=== PATIENT | male | born 1975 | race Caucasian/White ===

== ENCOUNTER 2021-05-23 12:22 | Emergency (ER) | payer OTHER ==
[2021-05-23 12:45] VITALS: BP 168/104
[2021-05-23] MEDS ORDERED: DEXAMETHASONE 10 MG/ML VIAL PO STA (13:10)
[2021-05-23] MEDS ORDERED: CHERRY SYRUP 10 ML UDC PO ONE (13:10)
--- NOTE | 2021-05-23 13:15 | ED Physician Documentation ---
PD HPI BACK PAIN - Stated complaint Stated Complaint: BACK PX - Chief complaint Chief Complaint: Back Pain - History obtained from History obtained from: Patient - History of Present Illness Timing - onset: How many days ago Timing - duration: Days (3) Timing - details: Abrupt onset, Still present Location: Lower, Right Quality: Pain, Sharp Associated symptoms: No: Fever, Weakness, Numbness, Incontinent of urine, Unable to urinate, Hematuria, Incontinent of stool Improves with: Rest Worsened by: Movement, Twisting Contributing factors: Other (digging a ditch.) Similar symptoms before: Diagnosis (lumbar strain) Recently seen: Clinic - Additional information Additional information: 45-year-old male reports onset of severe back pain about 3 days ago. He correlates this with digging a ditch and states that at the time he had a sore back but this pain did not get this bad until today. He has had an injury to this area previously and he relates digging a ditch continuously for about 30 to 40 minutes. He has a very sharp pain and the pains seem to come on sometimes without provocation. He went in to see Dr. Potter at the walk-in clinic was given a shot of Toradol he did not think this helped all that much. Review of Systems Constitutional: denies: Fever Nose: denies: Congestion Respiratory: denies: Cough GI: denies: Vomiting Musculoskeletal: reports: Back pain. denies: Extremity pain, Extremity swelling Neurologic: denies: Generalized weakness, Focal weakness, Numbness PD PAST MEDICAL HISTORY - Past Medical History Past Medical History: Yes - Past Surgical History Past Surgical History: No - Present Medications Home Medications: Ambulatory Orders Medication Instructions Recorded Confirmed Cyclobenzaprine [Flexeril] 10 mg PO TID PRN #20 tablet 05/23/21 HYDROcod/ACETAM 5/325 [Thorpe 5/325] 1 - 2 tablet PO Q6H PRN #14 tablet 05/23/21 - Allergies Allergies/Adverse Reactions: Allergies Allergy/AdvReac Type Severity Reaction Status Date / Time No Known Drug Allergies Allergy Verified 05/23/21 12:45 - Social History Does the pt smoke?: No Smoking Status: Never smoker Does the pt drink ETOH?: No Does the pt have substance abuse?: Yes - Immunizations Immunizations are current?: Yes - POLST Patient has POLST: No PD ED PE NORMAL - Vitals Vital signs reviewed: Yes (Hypertensive) - General General: Alert and oriented X 3, No acute distress, Well developed/nourished - HEENT HEENT: Atraumatic, PERRL, EOMI - Respiratory Respiratory: No respiratory distress - Back Back: Other (There is minimal tenderness to the insertion of the latissimus dorsi to the posterior iliac crest. 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 I have indicated the patient to expect about 5 days for this type of injury and have resolution rather than persistent problems. I have asked patient to hydrate excessively and we will provide some pain medication muscle relaxant. Today he is given dexamethasone 10 mg orally and we will forego the administration of Toradol as this did not seem to help 3 days ago. Departure - Departure Disposition: 01 Home, Self Care Clinical Impression: Overuse injury Condition: Stable Instructions: ED Low Back Pain Injury Follow-Up: your, doctor [Other] Prescriptions: Cyclobenzaprine [Flexeril] 10 mg PO TID PRN #20 tablet PRN Reason: Spasms HYDROcod/ACETAM 5/325 [Thorpe 5/325] 1 - 2 tablet PO Q6H PRN #14 tablet PRN Reason: Pain Discharge Date/Time: 05/23/21 13:28
== END 2021-05-23 13:28 | disposition home or self-care (01) ==
LOC: ED 12:22
DX: M70.90 Unspecified soft tissue disorder related to use, overuse and pressure of unspecified site (principal); Y93.H1 Activity, digging, shoveling and raking
CPT/HCPCS: 99282; 99284; A9270

== ENCOUNTER 2021-07-19 21:45 | Emergency (ER) | payer OTHER ==
[2021-07-19 22:34] LABS: BASOPHILS # (AUTO) 0.1 10^3/uL (0.0-0.1); BASOPHILS % (AUTO) 0.6 %; EOSINOPHILS # (AUTO) 0.1 10^3/uL (0.0-0.7); EOSINOPHILS % (AUTO) 0.6 %; HCT - HEMATOCRIT 44.5 % (42.0-52.0); HGB - HEMOGLOBIN 15.1 g/dL (14.0-18.0); LYMPHOCYTES # (AUTO) 1.8 10^3/uL (1.5-3.5); LYMPHOCYTES % (AUTO) 23.1 %; MEAN CORPUSCULAR HEMOGLOBIN 31.7 pg (27.0-31.0); MEAN CORPUSCULAR HGB CONC 33.9 g/dL (32.0-36.0); MEAN CORPUSCULAR VOLUME 93.5 fL (80.0-94.0); MEAN PLATELET VOLUME 9.3 fL (7.4-11.4); MONOCYTES # (AUTO) 0.8 10^3/uL (0.0-1.0); MONOCYTES % (AUTO) 9.6 %; NEUTROPHILS # (AUTO) 5.2 10^3/uL (1.5-6.6); NEUTROPHILS % (AUTO) 65.7 %; PLT - PLATELET COUNT 286 10^3/uL (130-450); RED BLOOD COUNT 4.76 10^6/uL (4.70-6.10); RED CELL DISTRIBUTION WIDTH 13.3 % (12.0-15.0); WHITE BLOOD COUNT 7.9 x10^3/uL (4.8-10.8)
[2021-07-19 22:45] LABS: BILIRUBIN,URINE NEGATIVE (NEGATIVE); GLUCOSE, URINE (UA) NEGATIVE (NEGATIVE); KETONES,URINE (UA) NEGATIVE (NEGATIVE); LEUKOCYTE ESTERASE, URINE NEGATIVE (NEGATIVE); MUDS CUTOFF CONCENTRATIONS CUTOFF CONC BELOW:; NITRITE,URINE NEGATIVE (NEGATIVE); OCCULT BLOOD,URINE TRACE-LYSE (NEGATIVE); PROTEIN,URINE NEGATIVE (NEGATIVE); UROBILINOGEN,URINE 0.2 (NORMAL) E.U./dL (NORMAL)
[2021-07-19 22:47] LABS: CLARITY,URINE CLEAR (CLEAR)
[2021-07-19] MEDS ORDERED: MIDAZOLAM 10 MG/5 ML UDC PO STA (22:50)
[2021-07-19 22:51] LABS: ACETAMINOPHEN < 10 ug/mL (10-30); ALBUMIN 4.5 g/dL (3.2-5.5); ALBUMIN/GLOBULIN RATIO 1.3 (1.0-2.2); ALKALINE PHOSPHATASE 39 IU/L (42-121); ALT ALANINE AMINOTRANSFERASE 22 IU/L (10-60); AST ASPARTATE AMINOTRANSFERASE 28 IU/L (10-42); BILIRUBIN,TOTAL 0.6 mg/dL (0.2-1.0); BUN - BLOOD UREA NITROGEN 11 mg/dL (6-20); CARBON DIOXIDE - CO2 24 mmol/L (21-32); CHLORIDE 103 mmol/L (101-111); CREATININE 0.7 mg/dL (0.6-1.2); ETOH - ETHANOL 277.1 mg/dL; GFR - MDRD 120 (>89); LIPASE 59 U/L (22-51); POTASSIUM 3.9 mmol/L (3.5-5.0); SALICYLATE < 6.0 mg/dL; SODIUM 140 mmol/L (135-145)
--- NOTE | 2021-07-19 22:53 | ED Physician Documentation ---
History of Present Illness - Stated complaint Stated Complaint: SI - Chief complaint Chief Complaint: MHE - History obtained from History obtained from: Patient - Additonal information Additional information: 46-year-old man With past medical history of alcohol abuse, depression, anxiety, bipolar disorder, brought in by EMS after Speaking on the phone with his father this evening who he states called his ex- a slur, upsetting the patient. The conversation exacerbated his baseline suicidal ideation and he developed a plan to shoot himself in the mouth but then called EMS instead. Guns were confiscated by police per patient's report. Of note, patient had been drinking beer all day. Denies HI or AVH Review of Systems Ten Systems: 10 systems reviewed and negative Constitutional: denies: Fever, Chills Cardiac: denies: Chest pain / pressure Psychiatric: reports: Depressed, Suicidal. denies: Homicidal PD PAST MEDICAL HISTORY - Past Medical History Past Medical History: Yes Psych: Depression, Anxiety, Bipolar disorder Derm: Eczema - Past Surgical History Past Surgical History: No - Present Medications Home Medications: Ambulatory Orders Medication Instructions Recorded Confirmed Ciclopirox 07/19/21 - Allergies Allergies/Adverse Reactions: Allergies Allergy/AdvReac Type Severity Reaction Status Date / Time No Known Drug Allergies Allergy Verified 07/19/21 22:03 - Social History Does the pt smoke?: No Smoking Status: Never smoker Does the pt drink ETOH?: No Does the pt have substance abuse?: Yes - Immunizations Immunizations are current?: Yes - POLST Patient has POLST: No PD ED PE NORMAL - Vitals Vital signs reviewed: Yes - General General: Alert and oriented X 3, No acute distress, Well developed/nourished - HEENT HEENT: Atraumatic, PERRL, EOMI - Neck Neck: Supple, no meningeal sign - Cardiac Cardiac: RRR - Respiratory Respiratory: No respiratory distress, Clear bilaterally - Abdomen Abdomen: Non tender, Non distended - Derm Derm: Normal color - Neuro Neuro: Alert and oriented X 3 - Psych Psych: Other (Tearful affect. Depressed mood) Results - Vitals Vitals: Oxygen O2 Source Room air - Labs Labs: Laboratory Tests 07/19/21 07/19/21 07/19/21 22:13 22:13 22:13 WBC 7.9 RBC 4.76 Hgb 15.1 Hct 44.5 MCV 93.5 MCH 31.7 H MCHC 33.9 RDW 13.3 Plt Count 286 MPV 9.3 Neut # (Auto) 5.2 Lymph # (Auto) 1.8 [place] # (Auto) 0.8 Eos # (Auto) 0.1 Baso # (Auto) 0.1 Absolute Nucleated RBC 0.00 Nucleated RBC % 0.0 Sodium 140 Potassium 3.9 Chloride 103 Carbon Dioxide 24 Anion Gap 13.0 BUN 11 Creatinine 0.7 Estimated GFR (MDRD) 120 Glucose 94 Calcium 9.0 Total Bilirubin 0.6 AST 28 ALT 22 Alkaline Phosphatase 39 L Total Protein 8.0 Albumin 4.5 Globulin 3.5 Albumin/Globulin Ratio 1.3 Lipase 59 H TSH 1.19 Urine Color Urine Clarity Urine pH Ur Specific [place] Urine Protein Urine Glucose (UA) Urine Ketones Urine Occult Blood Urine Nitrite Urine Bilirubin Urine Urobilinogen Ur Leukocyte Esterase Ur Microscopic Review Urine Culture Comments Salicylates < 6.0 Urine Opiates Screen Ur Oxycodone Screen Urine Methadone Screen Ur Propoxyphene Screen Acetaminophen < 10 L Ur Barbiturates Screen Ur Tricyclics Screen Ur Phencyclidine Scrn Ur Amphetamine Screen U Methamphetamines Scrn U Benzodiazepines Scrn Urine Cocaine Screen U Cannabinoids Screen Ethyl Alcohol 277.1 07/19/21 07/20/21 22:22 05:46 WBC RBC Hgb Hct MCV MCH MCHC RDW Plt Count MPV Neut # (Auto) Lymph # (Auto) [place] # (Auto) Eos # (Auto) Baso # (Auto) Absolute Nucleated RBC Nucleated RBC % Sodium Potassium Chloride Carbon Dioxide Anion Gap BUN Creatinine Estimated GFR (MDRD) Glucose Calcium Total Bilirubin AST ALT Alkaline Phosphatase Total Protein Albumin Globulin Albumin/Globulin Ratio Lipase TSH Urine Color YELLOW Urine Clarity CLEAR Urine pH 6.0 Ur Specific [place] 1.015 Urine Protein NEGATIVE Urine Glucose (UA) NEGATIVE Urine Ketones NEGATIVE Urine Occult Blood TRACE-LYSE Urine Nitrite NEGATIVE Urine Bilirubin NEGATIVE Urine Urobilinogen 0.2 (NORMAL) Ur Leukocyte Esterase NEGATIVE Ur Microscopic Review NOT INDICATED Urine Culture Comments NOT INDICATED Salicylates Urine Opiates Screen NEGATIVE Ur Oxycodone Screen NEGATIVE Urine Methadone Screen NEGATIVE Ur Propoxyphene Screen NEGATIVE Acetaminophen Ur Barbiturates Screen NEGATIVE Ur Tricyclics Screen NEGATIVE Ur Phencyclidine Scrn NEGATIVE Ur Amphetamine Screen NEGATIVE U Methamphetamines Scrn NEGATIVE U Benzodiazepines Scrn NEGATIVE Urine Cocaine Screen NEGATIVE U Cannabinoids Screen NEGATIVE Ethyl Alcohol 66.1 PD MEDICAL DECISION MAKING - ED course ED course: 10:30 PMpatient stating that he wants to leave because he has pets to feed but also stating that he is actively suicidal and is still thinking about shooting himself in the mouth with a gun. I advised the patient that he really needs to stay tonight and we can keep him comfortable until he can be evaluated by telepsych/social work. Patient requesting meds to help him sleep/help with anxiety. Patient endorsed to daytime MD for further management and care. Departure - Departure Disposition: 01 Home, Self Care Clinical Impression: Alcohol intoxication, Suicidal ideation Condition: Stable Comments: Home and rest and stay well-hydrated. Follow-up with counseling or alcohol treatment as discussed with the social work and her resources given to you by her. Discharge Date/Time: 07/20/21 11:00
[2021-07-19 22:55] LABS: AMPHETAMINE SCREEN,URINE NEGATIVE (NEGATIVE); BARBITURATE SCREEN,UR NEGATIVE (NEGATIVE); BENZODIAZEPINES SCREEN, URINE NEGATIVE (NEGATIVE); COCAINE SCREEN URINE NEGATIVE (NEGATIVE); METHADONE SCREEN, URINE NEGATIVE (NEGATIVE); METHAMPHETAMINES SCREEN, URINE NEGATIVE (NEGATIVE); OPIATE SCREEN, URINE NEGATIVE (NEGATIVE); OXYCODONE SCREEN, URINE NEGATIVE (NEGATIVE); PROPOXYPHENE SCREEN, URINE NEGATIVE (NEGATIVE); THC CANNABINOID SCREEN, URINE NEGATIVE (NEGATIVE); TRICYCLIC ANTIDEPRESSANT,URINE NEGATIVE (NEGATIVE)
[2021-07-19 23:11] LABS: GLUCOSE 94 mg/dL (70-100)
[2021-07-20] MEDS ORDERED: OLANZapine ODT 5 MG TABLET TL STA (00:24)
[2021-07-20 11:02] VITALS: BP 137/71
--- NOTE | 2021-07-20 11:28 | ED Physician Documentation ---
ED Addendum - Addendum Addendum: Social work talked with the patient and he was not feeling suicidal at this time. Has had some situational stresses. They discussed some of that and the social work provided resources for counseling or alcohol treatment if needed or desired by the patient. He is comfortable going home. I asked what his plans were for the day and he said he was going to go home rest feed the dogs and just relax. This seemed reasonable and goal oriented in he does not seem stressed and denies suicidality at this time. 07/20/21 11:27
== END 2021-07-20 11:00 | disposition home or self-care (01) ==
LOC: EDUNIT# → ED 21:45
DX: F10.129 Alcohol abuse with intoxication, unspecified (principal); R45.851 Suicidal ideations
CPT/HCPCS: 36415; 80053; 80306; 80307; 80320; 80329; 81003; 83690; 84443; 85025; 99283; A9270; 81001; 87086

== ENCOUNTER 2022-09-28 13:28 | Emergency (ER) | payer MEDICAID, OTHER ==
[2022-09-28] MEDS ORDERED: KETAMINE 500 MG/10 ML VIAL IM STA ×4 (13:58→22:21)
--- NOTE | 2022-09-28 13:58 | ED Physician Documentation ---
History of Present Illness - Stated complaint Stated Complaint: SI/HBD - Chief complaint Chief Complaint: MHE - Additonal information Additional information: 47-year-old old male was brought to the emergency department under an LORRIE for danger to self. Reportedly [facility] officer had been notified of a suicide threat at the patient's residence. Patient's called to advise that her had been drinking and was suicidal. She had not heard from him the previous night. Law enforcement gained entry into the house and found the patient to sleep on the floor.It is unclear if there was a gun at the scene. However law enforcement encountered a very intoxicated male who they had a difficult time talking to and who became aggressive and violent. He was ultimately handcuffed and brought into the emergency department. On arrival into the emergency department bay he is verbally aggressive, he cannot be redirected, he is also constantly screaming and yelling. He is insulting multiple staff members. He is demanding to be released from restraints and attempting to kick the nursing staff Review of Systems Unable to obtain: Intoxicated, Other (Per LORRIE) PD PAST MEDICAL HISTORY - Past Medical History Psych: Depression, Anxiety, Bipolar disorder Derm: Eczema - Past Surgical History Past Surgical History: No - Present Medications Home Medications: Ambulatory Orders Medication Instructions Recorded Confirmed Ciclopirox 07/19/21 - Allergies Allergies/Adverse Reactions: Allergies Allergy/AdvReac Type Severity Reaction Status Date / Time No Known Drug Allergies Allergy Verified 07/19/21 22:03 - Social History Does the pt smoke?: No Smoking Status: Never smoker Does the pt drink ETOH?: No Does the pt have substance abuse?: Yes - Immunizations Immunizations are current?: Yes - POLST Patient has POLST: No Results - Vitals Vitals: Vital Signs - 24 hr 09/28/22 09/28/22 09/28/22 13:42 13:55 14:21 Temperature 36.9 C Heart Rate 81 66 80 Respiratory 24 12 18 Rate Blood Pressure 178/112 H 147/59 H 151/72 H O2 Saturation 98 100 99 09/28/22 09/28/22 09/28/22 14:29 18:10 18:13 Temperature Heart Rate 70 97 101 H Respiratory 14 11 L 14 Rate Blood Pressure 149/60 H 158/112 H O2 Saturation 100 95 95 09/28/22 09/28/2222 18:41 20:35 21:23 Temperature Heart Rate 78 Respiratory 10 L 18 17 Rate Blood Pressure 169/100 H O2 Saturation 96 09/28/22 22:35 Temperature Heart Rate Respiratory 26 H Rate Blood Pressure 141/109 H O2 Saturation 99 Oxygen O2 Source Room air - Labs Labs: Laboratory Tests 09/28/22 09/28/22 09/28/22 14:15 14:15 14:15 WBC 6.6 RBC 5.32 Hgb 15.2 Hct 47.4 MCV 89.1 MCH 28.6 MCHC 32.1 RDW 15.5 H Plt Count 269 MPV 9.1 Neut # (Auto) 3.7 Lymph # (Auto) 2.3 [place] # (Auto) 0.5 Eos # (Auto) 0.0 Baso # (Auto) 0.1 Absolute Nucleated RBC 0.00 Nucleated RBC % 0.0 Sodium 140 Potassium 3.6 Chloride 103 Carbon Dioxide 28 Anion Gap 9.0 BUN 12 Creatinine 0.8 Estimated GFR (MDRD) 103 Glucose 91 Calcium 8.9 Total Bilirubin 0.7 AST 37 ALT 20 Alkaline Phosphatase 48 Total Protein 7.8 Albumin 4.5 Globulin 3.3 Albumin/Globulin Ratio 1.4 Lipase 45 TSH 1.20 Urine Color Urine Clarity Urine pH Ur Specific [place] Urine Protein Urine Glucose (UA) Urine Ketones Urine Occult Blood Urine Nitrite Urine Bilirubin Urine Urobilinogen Ur Leukocyte Esterase Urine RBC Urine WBC Ur Squamous Epith Cells Urine Bacteria Ur Microscopic Review Urine Culture Comments Salicylates < 6.0 Urine Opiates Screen Ur Oxycodone Screen Urine Methadone Screen Ur Propoxyphene Screen Acetaminophen < 10 L Ur Barbiturates Screen Ur Tricyclics Screen Ur Phencyclidine Scrn Ur Amphetamine Screen U Methamphetamines Scrn U Benzodiazepines Scrn Urine Cocaine Screen U Cannabinoids Screen Ethyl Alcohol 370.1 SARS-CoV-2 (PCR) 09/28/22 09/28/22 14:20 19:00 WBC RBC Hgb Hct MCV MCH MCHC RDW Plt Count MPV Neut # (Auto) Lymph # (Auto) [place] # (Auto) Eos # (Auto) Baso # (Auto) Absolute Nucleated RBC Nucleated RBC % Sodium Potassium Chloride Carbon Dioxide Anion Gap BUN Creatinine Estimated GFR (MDRD) Glucose Calcium Total Bilirubin AST ALT Alkaline Phosphatase Total Protein Albumin Globulin Albumin/Globulin Ratio Lipase TSH Urine Color YELLOW Urine Clarity CLEAR Urine pH 6.5 Ur Specific [place] 1.010 Urine Protein NEGATIVE Urine Glucose (UA) NEGATIVE Urine Ketones NEGATIVE Urine Occult Blood NEGATIVE Urine Nitrite NEGATIVE Urine Bilirubin NEGATIVE Urine Urobilinogen 0.2 (NORMAL) Ur Leukocyte Esterase TRACE H Urine RBC 0-5 Urine WBC 0-3 Ur Squamous Epith Cells NONE SEEN Urine Bacteria None Seen Ur Microscopic Review INDICATED Urine Culture Comments INDICATED Salicylates Urine Opiates Screen NEGATIVE Ur Oxycodone Screen NEGATIVE Urine Methadone Screen NEGATIVE Ur Propoxyphene Screen NEGATIVE Acetaminophen Ur Barbiturates Screen NEGATIVE Ur Tricyclics Screen NEGATIVE Ur Phencyclidine Scrn NEGATIVE Ur Amphetamine Screen NEGATIVE U Methamphetamines Scrn NEGATIVE U Benzodiazepines Scrn NEGATIVE Urine Cocaine Screen NEGATIVE U Cannabinoids Screen POSITIVE H Ethyl Alcohol SARS-CoV-2 (PCR) NOT DETECTED PD MEDICAL DECISION MAKING - ED course Complexity details: reviewed results, re-evaluated patient, considered kris kade, d/w patient ED course: 47-year-old male presents emergency department under an LORRIE with [facility] officers after phone call was made on his behalf as he been drinking heavily and had made suicidal threats to his . Law enforcement found him intoxicated on the floor of his house. On presentation to the emergency department the patient was aggressive agitated and yelling. He was cursing at multiple staff members attempting to hit and punch. He was immediately brought in and placed in physical violent locking restraints as well as administered a d ose of ketamine. Please see the documented [id number]. His initial blood alcohol on presentation was 370. He wont likely be clinically sober until about 2 or 3 am During the course this afternoon in the ED he has frequently been yelling and screaming, not redirectable. He has attempted to hit, punch and lunge at others There was a period of time where he was release from restraints to void and use the bathroom, but his behavior quickly excalated and he was rerestrained. Please see the F2F documentation. Pt will ultimately need to metablolize his alcohol and the be reassessed for MHE. He is signed out to my night time colleague Dr. Rosenberg at the end of my shift. Departure - Departure Clinical Impression: Combative behavior Acute alcohol intoxication Qualifiers: Complication of substance-induced condition: uncomplicated Qualified Code(s): F10.920 - Alcohol use, unspecified with intoxication, uncomplicated
[2022-09-28] MEDS ORDERED: KETAMINE 500 MG/10 ML VIAL ONE (14:03)
[2022-09-28 14:20] LABS: BASOPHILS # (AUTO) 0.1 10^3/uL (0.0-0.1); BASOPHILS % (AUTO) 1.1 %; EOSINOPHILS % (AUTO) 0.3 %; HCT - HEMATOCRIT 47.4 % (42.0-52.0); HGB - HEMOGLOBIN 15.2 g/dL (14.0-18.0); LYMPHOCYTES # (AUTO) 2.3 10^3/uL (1.5-3.5); LYMPHOCYTES % (AUTO) 34.9 %; MEAN CORPUSCULAR HEMOGLOBIN 28.6 pg (27.0-31.0); MEAN CORPUSCULAR HGB CONC 32.1 g/dL (32.0-36.0); MEAN CORPUSCULAR VOLUME 89.1 fL (80.0-94.0); MEAN PLATELET VOLUME 9.1 fL (7.4-11.4); MONOCYTES # (AUTO) 0.5 10^3/uL (0.0-1.0); MONOCYTES % (AUTO) 7.5 %; NEUTROPHILS # (AUTO) 3.7 10^3/uL (1.5-6.6); PLT - PLATELET COUNT 269 10^3/uL (130-450); RED BLOOD COUNT 5.32 10^6/uL (4.70-6.10); RED CELL DISTRIBUTION WIDTH 15.5 % (12.0-15.0); WHITE BLOOD COUNT 6.6 x10^3/uL (4.8-10.8)
[2022-09-28 14:38] LABS: ACETAMINOPHEN < 10 ug/mL (10-30); ALBUMIN 4.5 g/dL (3.2-5.5); ALBUMIN/GLOBULIN RATIO 1.4 (1.0-2.2); ALKALINE PHOSPHATASE 48 IU/L (42-121); ALT ALANINE AMINOTRANSFERASE 20 IU/L (10-60); AST ASPARTATE AMINOTRANSFERASE 37 IU/L (10-42); BILIRUBIN,TOTAL 0.7 mg/dL (0.2-1.0); BUN - BLOOD UREA NITROGEN 12 mg/dL (6-20); CALCIUM 8.9 mg/dL (8.5-10.3); CARBON DIOXIDE - CO2 28 mmol/L (21-32); CHLORIDE 103 mmol/L (101-111); CREATININE 0.8 mg/dL (0.6-1.2); ETOH - ETHANOL 370.1 mg/dL; GFR - MDRD 103 (>89); GLUCOSE 91 mg/dL (70-100); LIPASE 45 U/L (22-51); POTASSIUM 3.6 mmol/L (3.5-5.0); SALICYLATE < 6.0 mg/dL; SODIUM 140 mmol/L (135-145); TOTAL PROTEIN 7.8 g/dL (6.7-8.2)
--- NOTE | 2022-09-28 14:55 | ED Physician Documentation ---
Restraint [id number] - Immediate Situation Face to Face Evaluation Date: 09/28/22 Face to Face Evaluation Time: 14:00 Restraint Classification: Violent, physical Restraint Type: Locked extremity - Patient's Reaction & Behaviors Safety: Unable to Follow Commands Verbal: Demanding (yelling, calling staff "cunt" and "asshole") Harm: Potential harm to others Physical: Aggressive behavior, Fighting restraints, Kicking Other: Attempting removal of medically necessary device(s) - Behavioral Condition Attitude: Indifferent Behavior: Belligerent, Agitated Orientation: Disoriented to all Mood: Angry - Evaluation Review of Systems: unobtainable, not cooperative Pertinent History/Illicit Drugs/Medications/Results: intoxicated etoh - Plan Need to Continue or Terminate Violent or Chemical Restraint: This F2F for violent restraints. Will discontinue hopefully p chemical retraint and metabolization of Etoh.
--- NOTE | 2022-09-28 14:56 | ED Physician Documentation ---
Restraint [id number] - Immediate Situation Face to Face Evaluation Date: 09/28/22 Face to Face Evaluation Time: 14:02 Restraint Classification: Violent, chemical w/ physical hold Restraint Type: Locked extremity - Patient's Reaction & Behaviors Safety: Non-compliant Verbal: Demanding Harm: Potential harm to self, Potential harm to others Physical: Punching, Kicking Other: Attempting removal of medically necessary device(s) - Behavioral Condition Attitude: Indifferent Behavior: Belligerent, Agitated Orientation: Disoriented to all Mood: Depressed, Angry - Evaluation Review of Systems: unobtainable, not cooperative Pertinent History/Illicit Drugs/Medications/Results: intoxicated etoh - Plan Need to Continue or Terminate Violent or Chemical Restraint: Hopefully can discontinue restraint as he daisy up. This F2F for chemical restraint.
[2022-09-28] MEDS ORDERED: OLANZapine 10 MG VIAL IM ONE ×3 (16:32→17:51)
--- NOTE | 2022-09-28 16:35 | ED Physician Documentation ---
Restraint [id number] - Immediate Situation Face to Face Evaluation Date: 09/28/22 Face to Face Evaluation Time: 16:33 Restraint Classification: Violent, chemical w/ physical hold Restraint Type: Physical hold - Patient's Reaction & Behaviors Safety: Non-compliant Verbal: Screaming/Yelling (Prior restraint wore off, he is yelling. He did ask for water and I offered water if he agreed to cooperate. His response was "fuck you.") Harm: Actual harm to self (fighting restraints) Physical: Aggressive behavior, Kicking Other: Attempting removal of medically necessary device(s) - Behavioral Condition Attitude: Indifferent Behavior: Belligerent, Agitated Orientation: Disoriented to all Mood: Angry - Evaluation Review of Systems: unobtainable, not cooperative Pertinent History/Illicit Drugs/Medications/Results: intoxicated etoh - Plan Need to Continue or Terminate Violent or Chemical Restraint: Will add zyprexa this time in addition ketamine for hopeful longer acting restraint allowing more time for Etoh to metabolize
--- NOTE | 2022-09-28 17:52 | ED Physician Documentation ---
Restraint [id number] - Immediate Situation Face to Face Evaluation Date: 09/28/22 Face to Face Evaluation Time: 17:51 Restraint Classification: Violent, chemical w/ physical hold Restraint Type: Locked extremity - Patient's Reaction & Behaviors Safety: Non-compliant, Unable to Follow Commands Verbal: Screaming/Yelling, Swearing Harm: Potential harm to others, Verbalizes intent to harm (Threatening to beat up hospital staff) Physical: Aggressive behavior - Behavioral Condition Attitude: Indifferent Behavior: Belligerent, Agitated Orientation: Disoriented to all Mood: Depressed, Angry - Evaluation Review of Systems: unobtainable, not cooperative Pertinent History/Illicit Drugs/Medications/Results: intoxicated etoh - Plan Need to Continue or Terminate Violent or Chemical Restraint: This [id number] is for both the violence and chemical restraints ordered at this time. Unfortunately he has significantly escalated and is being both verbally aggressive with staff and physically aggressive and requiring an overhead stat alert and threatening to punch staff.
[2022-09-28 19:04] LABS: MUDS CUTOFF CONCENTRATIONS CUTOFF CONC BELOW:
[2022-09-28 19:06] LABS: BILIRUBIN,URINE NEGATIVE (NEGATIVE); GLUCOSE, URINE (UA) NEGATIVE (NEGATIVE); KETONES,URINE (UA) NEGATIVE (NEGATIVE); LEUKOCYTE ESTERASE, URINE TRACE (NEGATIVE); NITRITE,URINE NEGATIVE (NEGATIVE); OCCULT BLOOD,URINE NEGATIVE (NEGATIVE); PH,URINE 6.5 PH (5.0-7.5); PROTEIN,URINE NEGATIVE (NEGATIVE); UROBILINOGEN,URINE 0.2 (NORMAL) E.U./dL (NORMAL)
[2022-09-28 19:10] LABS: CLARITY,URINE CLEAR (CLEAR)
[2022-09-28 19:15] LABS: BACTERIA,URINE None Seen /HPF (None Seen); RBC,URINE 0-5 /HPF (0-5); SQUAMOUS EPITHELIAL CELL,UR NONE SEEN (<= Few); WBC,URINE 0-3 /HPF (0-3)
[2022-09-28 19:16] LABS: AMPHETAMINE SCREEN,URINE NEGATIVE (NEGATIVE); BARBITURATE SCREEN,UR NEGATIVE (NEGATIVE); BENZODIAZEPINES SCREEN, URINE NEGATIVE (NEGATIVE); COCAINE SCREEN URINE NEGATIVE (NEGATIVE); METHADONE SCREEN, URINE NEGATIVE (NEGATIVE); METHAMPHETAMINES SCREEN, URINE NEGATIVE (NEGATIVE); OPIATE SCREEN, URINE NEGATIVE (NEGATIVE); OXYCODONE SCREEN, URINE NEGATIVE (NEGATIVE); PROPOXYPHENE SCREEN, URINE NEGATIVE (NEGATIVE); THC CANNABINOID SCREEN, URINE POSITIVE (NEGATIVE); TRICYCLIC ANTIDEPRESSANT,URINE NEGATIVE (NEGATIVE)
[2022-09-28] MEDS ORDERED: HALOPERIDOL 5 MG/ML VIAL IM STA (22:21)
--- NOTE | 2022-09-28 22:22 | ED Physician Documentation ---
Restraint [id number] - Immediate Situation Face to Face Evaluation Date: 09/28/22 Face to Face Evaluation Time: 22:21 Restraint Classification: Violent, chemical w/ physical hold Restraint Type: Physical hold - Patient's Reaction & Behaviors Safety: Non-compliant Verbal: Screaming/Yelling, Swearing Harm: Potential harm to others, Verbalizes intent to harm Physical: Throwing objects, Beating on the door/wall Other: Disruption of therapy - Behavioral Condition Attitude: Indifferent Behavior: Belligerent, Agitated Orientation: Non-responsive Mood: Depressed, Angry - Evaluation Review of Systems: unobtainable, not cooperative Pertinent History/Illicit Drugs/Medications/Results: intoxicated etoh - Plan Need to Continue or Terminate Violent or Chemical Restraint: He is getting agitated again, yelling and screaming, upsetting other patients. We are unable to verbally de-escalate him. He is kicking at staff and at the Jackson stand at the bedside. He is administered ketamine and Haldol. Hopefully this round of sedation will be enough to get him through his intoxication.
[2022-09-29] MEDS ORDERED: KETAMINE 500 MG/10 ML VIAL IM STA (00:38)
--- NOTE | 2022-09-29 00:41 | ED Physician Documentation ---
Restraint [id number] - Immediate Situation Face to Face Evaluation Date: 09/29/22 Face to Face Evaluation Time: 00:40 Restraint Classification: Violent, chemical Restraint Type: Locked extremity - Patient's Reaction & Behaviors Safety: Physically safe, Non-compliant, Unable to Follow Commands Verbal: Demanding, Screaming/Yelling Harm: Potential harm to self, Potential harm to others Physical: Aggressive behavior, Fighting restraints, Kicking Other: Disruption of therapy - Behavioral Condition Attitude: Guarded Behavior: Agitated Orientation: Person (oriented to person, but thinks he's in [place] and unable to state month or year correctly) Mood: Labile - Evaluation Review of Systems: unobtainable, not cooperative Pertinent History/Illicit Drugs/Medications/Results: intoxicated etoh - Plan Need to Continue or Terminate Violent or Chemical Restraint: Attempted to contact Yulisa, patient's and point of contact. number does not connect. ROS not obtainable due to not cooperative. Will discontinue restraints when safe.
[2022-09-29] MEDS ORDERED: oxyCODONE 5 MG TABLET PO STA (03:24)
--- NOTE | 2022-09-29 03:31 | ED Physician Documentation ---
Restraint [id number] - Immediate Situation Face to Face Evaluation Date: 09/29/22 Face to Face Evaluation Time: :25 Restraint Classification: Violent, physical Restraint Type: Locked extremity, Side rails X 4 - Patient's Reaction & Behaviors Safety: Physically safe, Follows Commands Verbal: Demanding, Swearing Harm: Potential harm to self, Potential harm to others Physical: Aggressive behavior, Fighting restraints - Behavioral Condition Attitude: Guarded Behavior: Other (intermittently yelling, uncooperative) Orientation: Person, Place, Time, Situation Mood: Labile - Evaluation Review of Systems: unobtainable, not cooperative Pertinent History/Illicit Drugs/Medications/Results: intoxicated etoh - Plan Need to Continue or Terminate Violent or Chemical Restraint: Patient continuing to swear, yell, behaving erratically. Need to continue restraints until safe.
--- NOTE | 2022-09-29 07:56 | ED Physician Documentation ---
Restraint [id number] - Immediate Situation Face to Face Evaluation Date: 09/29/22 Face to Face Evaluation Time: 07:40 Restraint Classification: Violent, physical Restraint Type: Locked extremity - Patient's Reaction & Behaviors Safety: Follows Commands Verbal: Demanding Harm: Potential harm to others - Behavioral Condition Attitude: Open Behavior: Cooperative Orientation: Person, Place, Time, Situation Mood: Labile Behavioral Condition Comments: Shahid Simms is a 47-year-old male who presented to the emergency department yesterday with aggressive and violent behavior and required chemical and physical restraint. He has metabolized his alcohol and continues to have a labile affect. By history he acknowledges a prior diagnosis of bipolar disorder with no prior psychiatric admissions. He is currently unmedicated. Overnight the patient remained in restraint. He did bargain for removal of restraints and was able to convince the staff to remove the restraints and he became again aggressive violent and running up and down the halls of the emergency department. He has metabolized his alcohol he continues to have some mildly pressured speech but much improved from yesterday. - Evaluation Review of Systems: unobtainable, not cooperative Pertinent History/Illicit Drugs/Medications/Results: intoxicated etoh - Plan Need to Continue or Terminate Violent or Chemical Restraint: This morning we are attempting to remove Murrell restraints again. We are will remove 1 restraint at a time. [id number]
[2022-09-29 13:58] VITALS: BP 145/84
[2022-09-29] MEDS ORDERED: IBUPROFEN 600 MG TABLET PO STA (14:33)
--- NOTE | 2022-09-29 14:36 | ED Physician Documentation ---
ED Addendum - Addendum Addendum: 09/29/22 14:35 Patient has remained in the emergency department over night. He did require further episodes of chemical and physical restraints overnight. Please see that [id number] documentation. However since earlier this morning he has been out of restraints. He was seen by DCR who did not feel that he met criteria for involuntary placement. He is also been seen by her social security benefits interviewer. He had expressed to her that he has a heavy history of alcoholism and is scheduled to h ave an inpatient intake assessment completed in about 48 hours time. At this time he is deemed clinically stable for discharge home. He has no further thoughts of self-harm and while here in the emergency department this morning he has been calm, redirectable and without verbal or physical aggression towards others.
== END 2022-09-29 14:52 | disposition home or self-care (01) ==
LOC: EDUNIT# → ED 13:28
DX: F10.920 Alcohol use, unspecified with intoxication, uncomplicated (principal); Z78.1 Physical restraint status
CPT/HCPCS: 36415; 80053; 80306; 80307; 80320; 80329; 81001; 83690; 84443; 85025; 87086; 87635; 96372; 99281; 99285; A9270; 81003

== ENCOUNTER 2023-01-03 19:42 | Outpatient (CLI) | payer MEDICAID | END 2023-01-03 19:43 | disposition EMS.NT | LOC: EMS 19:42 | DX: R51.9 Headache, unspecified (principal); M54.2 Cervicalgia; R07.89 Other chest pain; V47.5XXA Car driver injured in collision with fixed or stationary object in traffic accident, initial encounter; Y92.414 Local residential or business street as the place of occurrence of the external cause ==

== ENCOUNTER 2023-01-06 17:07 | Emergency (ER) | payer MEDICAID ==
[2023-01-06 17:36] VITALS: BP 152/94
--- OUTSIDE RECORDS SUMMARY | 2023-01-06 17:38 | EXTERNAL MEDICAL SUMMARY RPT | Continuity of Care Document ---
:1975 Author Organization [facility] Address [address] [place] [address] Phone Allergies No information. Encounters No information. Functional Status No information. Immunizations No information. Medications No information. Problems date description facility 2022-12-16 17:53:05 UNKNOWN [facility] Procedures No information. Results/Labs No information. Social History No information. Vital Signs No information.
== END 2023-01-06 17:36 | disposition left against medical advice (07) ==
LOC: ED 17:07
DX: Z53.29 Procedure and treatment not carried out because of patient's decision for other reasons (principal)